=== PATIENT | male | born 1995 | race Caucasian/White ===

== ENCOUNTER 2016-07-03 10:23 | Emergency (ER) | payer OTHER ==
[2016-07-03 10:31] VITALS: TEMP 98.1
[2016-07-03] MEDS ORDERED: LORazepam 2 MG/ML INJ IVP ONE (10:50)
[2016-07-03] MEDS ORDERED: NS 1,000 ML IV ONE ×3 (10:50→12:31)
[2016-07-03] MEDS ORDERED: ONDANSETRON 4 MG/2 ML VIAL IVP ONE (10:55)
[2016-07-03 11:01] LABS: % IMMATURE GRANULYOCYTES 0.3 % (0.0-1.1); ABSOLUTE IMMATURE GRANULOCYTES 0.03 10^3/uL (0.00-0.10); ADD DIFF? NO; ADD MORPH? NO; ADD SCAN? NO; ATYPICAL LYMPHOCYTE FLAG 0 (0-99); FRAGMENT RBC FLAG 0 (0-99); HEMATOCRIT 48.5 % (40.0-51.0); HEMOGLOBIN 17.3 g/dL (13.7-17.5); LEFT SHIFT FLG 0 (0-99); LIPEMIA HEMOLYSIS FLAG 90 (0-99); MEAN CELL HEMOGLOBIN 31.4 pg (27.9-34.1); MEAN CELL HEMOGLOBIN CONCENTR. 35.7 g/dL (32.4-36.7); MEAN PLATELET VOLUME 9.2 fL (8.7-11.7); PLATELET CLUMPS FLAG 10 (0-99); PLATELET COUNT 247 10^3/uL (150-400); RED BLOOD CELL COUNT 5.51 10^6/uL (4.40-6.38); RED CELL DISTRIBUTION WIDTH 11.9 % (11.5-15.2)
[2016-07-03 11:22] LABS: ALANINE AMINOTRANSFERASE 28 IU/L (21-72); ALBUMIN 4.9 g/dL (3.5-5.0); ALKALINE PHOSPHATASE 59 IU/L (38-126); ANION GAP 15 mEq/L (8-16); ASPARTATE AMINOTRANSFERASE 21 IU/L (17-59); BILIRUBIN,TOTAL 0.7 mg/dL (0.1-1.4); BILIRUBIN-CONJUGATED 0.4 mg/dL (0.0-0.5); BILIRUBIN-UNCONJUGATED 0.3 mg/dL (0.0-1.1); CALCIUM 9.8 mg/dL (8.5-10.4); CARBON DIOXIDE 25 mEq/l (22-31); CHLORIDE 106 mEq/L (97-110); CREATININE 0.8 mg/dL (0.7-1.3); GLOMERULAR FILTRATION RATE > 60; GLUCOSE 118 mg/dL (70-100); SODIUM 146 mEq/L (134-144); TOTAL PROTEIN 7.4 g/dL (6.3-8.2)
--- NOTE | 2016-07-03 11:42 | EDPHY ---
H & P Stated Complaint: Epigastric pain; vomited blood streaked emesis this morning Time Seen by Provider: 07/03/16 10:39 HPI/ROS: CHIEF COMPLAINT: Epigastric pain vomiting HISTORY OF PRESENT ILLNESS: The patient is a 21-year-old man with a history of gastroesophageal reflux who comes to the emergency department complaining of nausea, vomiting and epigastric pain this morning. He states that it is not unusual for him to wake up most mornings with epigastric pain and vomit bile. Today however his pain was worse than usual and he had chunky vomit that appear to be blood streaks. He felt fine yesterday and felt normal this morning when he awoke. His symptoms have settled somewhat. He does have a history of severe anxiety as well. He has not had a fever. He has not had any diarrhea. No chest pain or shortness of breath. REVIEW OF SYSTEMS: Constitutional: denies: chills, fever, recent illness, recent injury EENTM: denies: blurred vision, double vision, nose congestion Respiratory: denies: cough, shortness of breath Cardiac: denies: chest pain, irregular heart rate, lightheadedness, palpitations Gastrointestinal/Abdominal: See HPI Genitourinary: denies: dysuria, frequency, hematuria, pain Musculoskeletal: denies: joint pain, muscle pain Skin: denies: lesions, rash, jaundice, bruising Neurological: denies: headache, numbness, paresthesia, tingling, dizziness, weakness Hematologic/Lymphatic: denies: blood clots, easy bleeding, easy bruising Immunologic/allergic: denies: HIV/AIDS, transplant EXAM: GENERAL: Well-appearing, well-nourished and in no acute distress. HEAD: Atraumatic, normocephalic. EYES: Pupils equal round and reactive to light, extraocular movements intact, sclera anicteric, conjunctiva are normal. ENT: TMs normal, nares patent, oropharynx clear without exudates. Moist mucous membranes. NECK: Normal range of motion, supple without lymphadenopathy or JVD. LUNGS: Breath sounds clear to auscultation bilaterally and equal. No wheezes rales or rhonchi. HEART: Regular rate and rhythm without murmurs, rubs or gallops. ABDOMEN: Soft, nontender, normoactive bowel sounds. No guarding, no rebound. No masses appreciated. BACK: No CVA tenderness, no spinal tenderness, step-offs or deformities EXTREMITIES: Normal range of motion, no pitting or edema. No clubbing or cyanosis. NEUROLOGICAL: Cranial nerves II through XII grossly intact. Normal speech, normal gait. 5/5 strength, normal movement in all extremities, normal sensation PSYCH: Normal mood, normal affect. SKIN: Warm, dry, normal turgor, no visible rashes or lesions. Source: Patient Exam Limitations: No limitations - Personal History Current Tetanus Diphtheria and Acellular Pertussis (TDAP): Yes - Medical/Surgical History Hx Asthma: Yes Hx Chronic Respiratory Disease: No Hx Diabetes: No Hx Cardiac Disease: No Hx Renal Disease: No Hx Cirrhosis: No Hx Alcoholism: No Hx HIV/AIDS: No Hx Splenectomy or Spleen Trauma: No Other PMH: anxiety, tonsil & adenoids. "GI issues" ?GERD - Family History Significant Family History: Hypertension - Social History Smoking Status: Never smoked Alcohol Use: Sober Drug Use: None Constitutional: Initial Vital Signs Temperature (C) 36.7 C 07/03/16 10:25 Heart Rate 81 07/03/16 10:25 Respiratory Rate 18 07/03/16 10:25 Blood Pressure 115/67 07/03/16 10:25 O2 Sat (%) 97 07/03/16 10:25 O2 Delivery Mode Room Air Allergies/Adverse Reactions: No Known Allergies Allergy (Verified 07/03/16 10:31) Home Medications: Medication Instructions Recorded ALPRAZolam [Xanax 0.25 MG (*)] 11/23/13 Albuterol [Proventil Neb] 3 ml IH QID 11/23/13 Fluticasone/Salmeter 100/50Mcg 11/23/13 [Advair 100/50 (RX)] Ondansetron Odt [Zofran Odt 4 mg 4 mg PO Q4 PRN #20 tab 07/03/16 (RX)] Ranitidine HCl [Zantac 75] 75 mg PO 07/03/16 Medical Decision Making - Diagnostics Imaging: Study: Ultrasound of the: Right upper quadrant Indication: Right upper quadrant pain Results: US scan of the right upper quadrant with special attention to the liver gallbladder and pancreas was obtained. The results of the study are negative for any gallstones, wall thickening or free fluid some possible polyps. The study was read by the radiologist, Dr. Carmelo Reyes. I viewed the images myself on the PACS system. Results: CT scan of the abdomen and pelvis was obtained. The results of the study are negative. The study was read by Dr. Marcelo Sommer. I viewed the images myself on the PACS system. ED Course/Re-evaluation: 12:30 p.m. the patient is not feeling much better. He still feels nauseous. He states that the pain is now radiating down to his umbilical area. He does not have tenderness on exam. I will treat him with Phenergan, more IV fluids in order CT scan to evaluate for lower abdominal issues. 2:20 p.m. we discussed the patient's CT results. He is very much relieved. His symptoms have resolved. He takes omeprazole and ranitidine at home. I encouraged him to continue this and I will have him follow up with Gastroenterology. He seems to have chronic GERD which is refractory to these treatments and today's symptoms may have been a worsening of these. No sign of perforation or acute abdomen. Patient is girlfriend are happy with this recommendation declined further workup or admission. Additional verbal discharge instructions given. Differential Diagnosis: Partial list of the Differential diagnosis considered include but were not limited to; gastroenteritis, GERD, biliary disease, appendicitis and although unlikely based on the history and physical exam, I also considered obstruction, ischemia, volvulus, torsion. I discussed these differential diagnoses and the plan with the patient as well as the usual and expected course. The patient understands that the diagnosis is provisional and that in medicine we are not always correct and that further workup is often warranted. Usual and customary warnings were given. All of the patient's questions were answered. The patient was instructed to return to the emergency department should the symptoms at all worsen or return, otherwise to followup with the physician as we discussed. - Data Points Laboratory Results: Laboratory Results 07/03/16 10:45 07/03/16 10:45 Medications Given: Discontinued Medications Sodium Chloride (Ns) 1,000 mls @ 0 mls/hr IV ONCE ONE PRN Reason: Wide Open Stop: 07/03/16 10:51 Last Admin: 07/03/16 11:00 Dose: 1,000 mls Sodium Chloride (Ns) 1,000 mls @ 0 mls/hr IV ONCE ONE PRN Reason: Wide Open Stop: 07/03/16 10:56 Last Admin: 07/03/16 11:06 Dose: Not Given Sodium Chloride (Ns) 1,000 mls @ 0 mls/hr IV ONCE ONE PRN Reason: Wide Open Stop: 07/03/16 12:32 Last Admin: 07/03/16 12:43 Dose: 1,000 mls Lorazepam (Ativan Injection) 1 mg IVP EDNOW ONE Stop: 07/03/16 10:51 Last Admin: 07/03/16 11:00 Dose: 1 mg Ondansetron HCl (Zofran) 4 mg IVP EDNOW ONE Stop: 07/03/16 10:56 Last Admin: 07/03/16 11:00 Dose: 4 mg Promethazine HCl (Phenergan Injection) 25 mg IVP EDNOW ONE Stop: 07/03/16 12:32 Last Admin: 07/03/16 12:40 Dose: 25 mg Departure - Departure Disposition: Home, Routine, Self-Care Clinical Impression: Vomiting Qualifiers: Vomiting type: unspecified Vomiting Intractability: non-intractable Nausea presence: without nausea Qualifier Code: (R11.11) Vomiting without nausea GERD (gastroesophageal reflux disease) Qualifiers: Esophagitis presence: esophagitis presence not specified Qualifier Code: (K21.9 ) Gastro-esophageal reflux disease without esophagitis Condition: Fair Instructions: Acute Nausea and Vomiting (ED), Gastroesophageal Reflux Disease ( ED) Referrals: NONE *PRIMARY CARE P,. [Primary Care Provider] - As per Instructions Jaiden Ayala MD [Medical Doctor] - As per Instructions Prescriptions: Ondansetron Odt [Zofran Odt 4 mg (RX)] 4 mg PO Q4 PRN #20 tab PRN Reason: Nausea & Vomiting
--- NOTE | 2016-07-03 11:58 | US ---
Sonography Limited to the Right Upper Quadrant of the Abdomen Clinical History: 21-year-old male in the ED with nausea, vomiting, and upper abdominal pain this mor angeline. Rule out cholelithiasis. Technique: A curvilinear 5 MHz transducer was used to sonographically evaluate the right upper quadra nt of the abdomen. Color Doppler was also used. Comparison Study: None. Findings: The pancreatic contour is normal. The abdominal aorta is normal in size, and tapers normall y. The visualized IVC is normal in caliber. The main portal vein is patent, with hepatopetal flow. Th e hepatic vein trifurcation is normal. There is no ascites or right pleural effusion. The liver is mi ldly enlarged, measuring 18.6 cm along the right maxillary line. There is no focal hepatic mass. Ther e is no intra or extrahepatic bile duct dilatation. The common bile duct measures 2.2 mm. The gallbla dder is moderately distended, with a wall thickness of 2.1 mm. There is no pericholecystic fluid or s onographic Ramos sign. There are some punctate adherent nonmobile echogenic nonshadowing foci which likely represent tiny polyps; the possibility of adherent sludge balls is also mentioned (the fact th at these are nonmobile and there is no acoustic shadowing would militate against gallstones). There i s some minimal debris present. The right kidney is normal, measuring 10.7 x 3.9 x 4.4 cm. There is no hydronephrosis or renal cortical atrophy. Impression: 1. There is a small amount of mobile debris within the gallbladder and some punctate adherent foci, m ost suggestive of tiny polyps. There is no convincing evidence of cholelithiasis, nor is there any ch olecystitis or bile duct dilatation. 2. Mild hepatomegaly. I twice-called Dr. Reggie Hamilton to convey this information, and then indicated to Nakita, the ER Mabel zeng, that the report would be available for his viewing (at 11:51 AM, 07/03/2016).
[2016-07-03] MEDS ORDERED: PROMETHAZINE HCL 25 MG/ML VIAL IVP ONE (12:31)
[2016-07-03] MEDS ORDERED: IOPAMIDOL (ISOVUE-300) 100 ML BTL IV ONE (12:36)
--- NOTE | 2016-07-03 14:01 | CT ---
CT Scan of the Abdomen and Pelvis (With Contrast) 1310 Hours History: Epigastric abdominal pain with vomiting. Technique: Axial computed tomographic images of the abdomen and pelvis were obtained with the unevent ful intravenous administration of 90 mL Isovue-300 contrast. No oral or rectal contrast which limits the study. Dose reduction techniques were utilized. CT Abdominal Findings Lung bases: Normal. Liver: Normal. Biliary system: No obstruction. Spleen: Normal. Pancreas: Normal. Adrenals: Normal. Kidneys: No obstruction or solid masses. Abdominal Aorta: No aneurysm. No bowel obstruction, ascites, or significant retroperitoneal lymphadenopathy. CT Pelvic Findings: No pelvic fluid collections. No evidence of inflammatory thickening of the append ix. Minimal free fluid in the pelvis. Impressions 1. Minimal free fluid in the pelvis. 2. No CT evidence of appendicitis, abscess, or bowel obstruction. 3. No hepatosplenomegaly or peripancreatic fluid. Findings and recommendations discussed with Emergency Department physician, Dr. Hamilton, at 1350 hour s, today, July 03, 2016. Final report concurs with initial preliminary interpretation.
[2016-07-03 15:16] VITALS: BP 115/67; PULSE 71; RESP 16; O2SAT 98
== END 2016-07-03 15:18 | disposition home or self-care (01) ==
DX: K21.9 Gastro-esophageal reflux disease without esophagitis (principal); J45.909 Unspecified asthma, uncomplicated
CPT/HCPCS: 96374; J2405; J2550; Q9967